=== PATIENT | female | born 2000 | race Two or more races ===

== ENCOUNTER 2025-01-10 18:02 | Emergency (ER) | payer MEDICAID, SELFPAY ==
[2025-01-10 18:03] VITALS: BMI 26.5
[2025-01-10 19:05] VITALS: BP 119/84; PULSE 77; RESP 18; TEMP 36.9; O2SAT 99
--- NOTE | 2025-01-10 19:17 | EDNOTE_ITS ---
ED Skin Abcess FB-RME/HPI General Chief complaint: Wound Recheck / Suture Removal Stated complaint: INCISION SITE PAIN S/P 3 YRS AGO Time Seen by Provider: 01/10/25 19:07 Arrival date/time: 01/10/25 18:02 24F with no significant PMH presents to ED with 2 months of intermittent C- section scar pain that was from 3 years ago. Normal intake/output. Patient denies drainage and fevers/chills. Patient is currently on her period. Pain is worse with movement. Limitations: no limitations Related Data Home Medications ?Medication ?Instructions ?Recorded ?Confirmed vit no.95-ferrous 1 tab PO QDAY 08/24/2108/17 fumarate 28 mg-folic acid 800 mcg tablet () albuterol sulfate 90 mcg/actuation 1 - 2 puff inhalati on PRN PRN 08/28/21 08/28/21 aerosol inhaler Shortness Of Breath Or Wheez ing Previous Rx's ?Medication ?Instructions ?Recorded hydrocodone 5 mg-acetaminophen 325 1 tab PO Q4H PRN pa in #20 tabs 08/30/21 mg tablet amoxicillin 875 mg-potassium 1 tab PO BID #10 tabs clavulanate 125 mg tablet dicyclomine 10 mg capsule 10 mg PO BID PRN pain #10 ca ps 09/10/22 ondansetron 4 mg disintegrating 4 mg PO Q8H PRN nausea and 09/10/22 tablet vomiting #15 tabs amoxicillin 875 mg-potassium 1 tab PO Q12H #14 tabs clavulanate 125 mg tablet ibuprofen 800 mg tablet 800 mg PO TID PRN pain #30 t abs 08/22/23 omeprazole 40 mg capsule,delayed 40 mg PO QDAY #30 cap s 09/27/23 release Allergies Allergy/AdvReac Type Severity Reaction Status Date / Time No Known Allergies Allergy Verified 01/10/25 18:06 Review of Systems Review of Systems Systems Reviewed: All systems reviewed, normal except as documented Constitutional Constitutional: Reports system reviewed and no additional complaints, except as documented, Denies fever(s) and Denies headache(s) ENT Ears, Nose, Mouth, and Throat: Denies disequilibrium and Denies headache(s) Cardiovascular Cardiovascular: Reports system reviewed and no additional complaints, except as documented, Denies chest pain and Denies dyspnea Respiratory Respiratory: Reports system reviewed and no additional complaints, except as documented, Denies cough and Denies dyspnea Gastrointestinal Gastrointestinal: Reports system reviewed and no additional complaints, except as documented, Denies abdominal pain, Denies nausea and Denies vomiting Integumentary/Breasts Skin/Breast: Reports as per HPI and Reports skin pain Neurologic Neurologic: Reports system reviewed and no additional complaints, except as documented, Denies confusion, Denies disequilibrium and Denies headache(s) Psychiatric Psychiatric: Denies confusion Past Medical History Past Medical History NEUROLOGIC: Negative Neurological Disorders CARDIAC: Negative Cardiac Disorders or Congestive Heart Failure RESPIRATORY: Positive Asthma (WITH INH); Negative Chronic Obstructive Pulmonary Disease (COPD) GASTROINTESTINAL: Positive Gastrointestinal Disorders and Gastroesophageal Reflux Disease; Negative Hepatitis or Colorectal Cancer GENITOURINARY: Positive Genitourinary Disorders (UTIS); Negative Renal Disease REPRODUCTIVE: Positive Previous Pregnancies (sab X1.); Negative Breast Cancer MUSCULOSKELETAL: Negative Musculoskeletal Disorders or Bone Cancer ENDOCRINE: Negative Endocrine Disorders, Diabetes Mellitus Type 1 or Diabetes Mellitus Type 2 HEMATOLOGIC: Negative Blood Disorders PSYCHO/SOCIAL: Positive Recreational Drug Use (THC), Anxiety, Attention Deficit Disorder and Attention Deficit Hyperactivity Disorder OTHER HISTORY: Negative Hospitalization, Autoimmune Disease, Down Syndrome, Developmental Delay, Shingles, Falls, Blood Transfusions, Blood Transfusion Reaction, Anesthesia Reactions, Organ Transplant, Chemotherapy, Radiation Therapy, Hyperbaric Therapy, MRSA, VRSA, Vancomycin-Resistant Enterococci, Human Immunodeficiency Virus (HIV), Chicken Pox, Measles, Mumps, Rubella (Emirati Measles), Pertussis, Clostridium Difficile, Cancer, Breast Cancer, Cervical Cancer, Colorectal Cancer, Lung Cancer or Ovarian Cancer Family History FAMILY HISTORY: Positive Family Psychiatric Problems (MOTHER- BIPOLAR/DRUGS), Family Cardiac Disorders (PAT GMA/ FATHER- HTN), Family Cancer (PAT GPA) and Family Surgery (FATHER- VALVE REPLACEMENT); Negative Family Respiratory Disorders, Family Gastrointestinal Problems or Family Anesthesia Reaction Surgical History SURGICAL: Negative Organ Transplant Social History SMOKING STATUS: Never smoker SUBSTANCE USE: marijuana ED Exam General Limitations: Present no limitations General appearance: Present alert and in no apparent distress Head Head exam: Present atraumatic Eye Eye exam: Present normal appearance, PERRL and EOMI ENT ENT exam: Present normal exam, normal oropharynx and mucous membranes moist Neck Neck exam: Present normal inspection, full ROM and trachea midline Chest Chest inspection: Present normal inspection and symmetric chest wall rise Respiratory Respiratory exam: Present normal lung sounds bilaterally Cardiovascular Cardiovascular exam: Present regular rate, normal rhythm and normal heart sounds Abdominal Exam Abdominal exam: Present soft, normal bowel sounds and scar () Extremities Exam Extremities exam: Present normal inspection and full ROM Back Exam Back exam: Present normal inspection and full ROM Neurological Exam Neurological exam: Present alert, oriented X3 and CN II-XII intact Psychiatric Psychiatric exam: Present normal affect and normal mood Skin Skin exam: Present warm, dry, intact and normal color Course Quality Measures none Orders Category Date Time Status Naproxen [Naprosyn] Med 01/10/25 19:08 Discontinued 250 mg PO X1 ONE Vital Signs Vital signs: Vital Signs Temperature 98.5 F 01/10/25 19:05 Pulse Rate 77 01/10/25 19:05 Respiratory Rate 18 01/10/25 19:05 Blood Pressure 119/84 01/10/25 19:05 Pulse Oximetry (%) 99 01/10/25 19:05 Oxygen Delivery Method Room Air 01/10/25 19:05 O2 at 99% on RA and WNLs Skin / Abscess / Foreign Body MDM Narrative MDM Narrative:: 24F with no significant PMH presents to ED with 2 months of intermittent C- section scar pain that was from 3 years ago. Normal intake/output. Patient denies drainage and fevers/chills. Patient is currently on her period. Pain is worse with movement. Physical exam with senior field engineer reveals well-healed scar. No redness, hypertrophy, or tenderness. Patient is afebrile, calm, and alert. Meds and drug and alcohol counsellor given. Patient data External records reviewed:: [facility] previous records Clinical information provided by:: patient Social determinants that could affect healthcare access:: none Patient has the following chronic illnesses:: none How is presenting disease/condition affected by chronic disease/condition?: no chronic disease Evaluation data The following diagnostics were reviewed and interpreted by me:: other (specify) (none) Lab and/or radiology exams considered but not ordered:: not ordered Interpretation Summary: n/a Medications / Prescriptions Medications or Prescriptions considered but not ordered:: ordered Medication administrations:: Medication Administration History Discontinued Medications Naproxen (Naproxen 250 Mg Tablet) 250 mg PO X1 ONE Stop: 01/10/25 19:09 Last Admin: 01/10/25 19:25 Dose: 250 mg Documented By: KF above Consultations Consultation(s) initiated? (list below): No Diagnosis Skin/Abscess Differential Diagnosis: abscess of skin or subcutaneous tissue, viral exanthem, dermatophytosis, urticaria, herpes zoster, allergic reaction to drug, cellulitis, eczema, insect bites, impetigo and contact dermatitis Most likely diagnosis given after review of the tests above:: maternal care for scar Admission Indicated Admission indicated?: not indicated Admission Request Was there a request for admission?: No Disposition Plan Disposition Plan: Discharge Discharge Attestation Discharge Attestation: The patient and all family members were given an opportunity to ask questions and understood the discharge instructions. Discharge instructions specifically effects, indications for sooner follow up or return to the emergency department, and the expected course of current diagnosis. Patient condition: Stable Discharge Plan Plan Patient Disposition: HOME (Self Care) Discharge Disposition comment: Stable Prescriptions/Referrals Prescriptions/Med Rec: No Action albuterol sulfate 90 mcg/actuation HFA aerosol inhaler 1 - 2 puff INHALATION PRN PRN (Reason: Shortness Of Breath Or Wheezing) Patient Comments: INHALE 1 PUFF BY MOUTH EVERY 4 TO 6 HOURS NEEDED hydrocodone-acetaminophen 5-325 mg tablet 1 tab PO Q4H MDD 5 PRN (Reason: pain) Qty: 20 0RF amoxicillin-pot clavulanate 875-125 mg tablet 1 tab PO BID Qty: 10 0RF PNV cmb#95-ferrous fumarate-FA [] 28 mg iron- 800 mcg tablet 1 tab PO QDAY ondansetron 4 mg tablet,disintegrating 4 mg PO Q8H PRN (Reason: nausea and vomiting) Qty: 15 0RF dicyclomine 10 mg capsule 10 mg PO BID PRN (Reason: pain) Qty: 10 0RF ibuprofen 800 mg tablet 800 mg PO TID PRN (Reason: pain) Qty: 30 0RF amoxicillin-pot clavulanate 875-125 mg tablet 1 tab PO Q12H Qty: 14 0RF omeprazole 40 mg capsule,delayed release(DR/EC) 40 mg PO QDAY Qty: 30 0RF Problem List Clinical Impression: Scar conditions and fibrosis of skin, Maternal care for unspecified type scar from previous delivery Patient/Caregiver Discharge Instructions Additional Instructions: Please follow-up with PCP/OBYGN within 24-48 hours and return immediately if symptoms worsen. NSAIDs tend to work better for this type of pain. Print Language: Lithuanian Stand Alone Forms: Patient Portal Info Letter PA/SYSTEMS INTEGRATION ADVISOR Supervising Physician PA/SYSTEMS INTEGRATION ADVISOR Supervising Physician: Dr. Ortiz
[2025-01-10] MEDS: NAPROXEN 250 MG TABLET PO (19:25)
== END 2025-01-10 19:30 | disposition home or self-care (01) ==
PROVIDERS: Emergency Provider Emergency Medicine
DX: L90.5 Scar conditions and fibrosis of skin (principal); Z98.891 History of uterine scar from previous surgery
CPT/HCPCS: 99282; A9270

== ENCOUNTER 2025-05-16 05:27 | Emergency (ER) | payer MEDICAID, SELFPAY ==
[2025-05-16 05:28] VITALS: BMI 25.7
[2025-05-16 05:51] VITALS: BP 110/70; PULSE 73; RESP 16; TEMP 37; O2SAT 98
--- NOTE | 2025-05-16 06:27 | PD.EDBACK ---
ED Back Injury Pain RME/HPI General Chief Complaint: Skin/Abscess/Foreign Body Stated Complaint: CYST ON BACK Time Seen by Provider: 05/16/25 06:10 Source: patient Arrival date/time: 05/16/25 05:27 24-year-old female with no known medical history presents to the emergency room with a chief complaint of lumbar back pain. Patient states she has a cyst on her back. Mode of arrival: ambulatory Limitations: no limitations Related Data Home Medications ?Medication ?Instructions ?Recorded ?Confirmed vit no.95-ferrous 1 tab PO QDAY 08/24/21 08/28/21 fumarate 28 mg-folic acid 800 mcg tablet () albuterol sulfate 90 mcg/actuation 1 - 2 puff inhalation PRN PRN 08/28/21 08/28/21 aerosol inhaler Shortness Of Breath Or Wheezing Previous Rx's ?Medication ?Instructions ?Recorded hydrocodone 5 mg-acetaminophen 325 1 tab PO Q4H PRN pain #20 tabs 08/30/21 mg tablet amoxicillin 875 mg-potassium 1 tab PO BID #10 tabs 09/01/21 clavulanate 125 mg tablet dicyclomine 10 mg capsule 10 mg PO BID PRN pain #10 caps 09/10/22 ondansetron 4 mg disintegrating 4 mg PO Q8H PRN nausea and 09/10/22 tablet vomiting #15 tabs amoxicillin 875 mg-potassium 1 tab PO Q12H #14 tabs 08/22/23 clavulanate 125 mg tablet ibuprofen 800 mg tablet 800 mg PO TID PRN pain #30 tabs 08/22/23 omeprazole 40 mg capsule,delayed 40 mg PO QDAY #30 caps 09/27/23 release Allergies Allergy/AdvReac Type Severity Reaction Status Date / Time No Known Allergies Allergy Verified 01/10/25 18:06 Review of Systems Review of Systems Systems Reviewed: All systems reviewed, normal except as documented Constitutional Constitutional: Reports system reviewed and no additional complaints, except as documented, Denies fatigue, Denies fever(s), Denies headache(s) and Denies weakness Eyes Eyes: Reports system reviewed and no additional complaints, except as documented, Denies blurry vision and Denies change in vision ENT Ears, Nose, Mouth, and Throat: Reports system reviewed and no additional complaints, except as documented, Denies otalgia, Denies headache(s), Denies nasal congestion, Denies throat swelling and Denies vertigo Cardiovascular Cardiovascular: Reports system reviewed and no additional complaints, except as documented, Denies chest pain, Denies dyspnea and Denies dyspnea on exertion Respiratory Respiratory: Reports system reviewed and no additional complaints, except as documented, Denies chest congestion, Denies cough, Denies dyspnea, Denies dyspnea on exertion and Denies wheezing Gastrointestinal Gastrointestinal: Reports system reviewed and no additional complaints, except as documented, Denies abdominal pain, Denies cramping, Denies nausea and Denies vomiting Genitourinary Genitourinary: Reports system reviewed and no additional complaints, except as documented Musculoskeletal Musculoskeletal: Reports system reviewed and no additional complaints, except as documented and Reports back pain Integumentary/Breasts Skin/Breast: Reports system reviewed and no additional complaints, except as documented and Denies wounds Neurologic Neurologic: Reports system reviewed and no additional complaints, except as documented, Denies confusion, Denies headache(s), Denies lack of coordination, Denies vertigo and Denies weakness Psychiatric Psychiatric: Reports system reviewed and no additional complaints, except as documented, Denies anxiety, Denies confusion, Denies depression, Denies paranoia, Denies suicidal ideation and Denies tactile hallucinations Endocrine Endocrine: Reports system reviewed and no additional complaints, except as documented and Denies fatigue Hematologic/Lymphatic Hematologic/Lymphatic: Reports system reviewed and no additional complaints, except as documented and Denies lymphadenopathy Allergic/Immunologic Allergic/Immunologic: Reports system reviewed and no additional complaints, except as documented, Denies throat swelling, Denies urticaria and Denies wheezing Past Medical History Past Medical History NEUROLOGIC: Negative Neurological Disorders CARDIAC: Negative Cardiac Disorders or Congestive Heart Failure RESPIRATORY: Positive Asthma (WITH INH); Negative Chronic Obstructive Pulmonary Disease (COPD) GASTROINTESTINAL: Positive Gastrointestinal Disorders and Gastroesophageal Reflux Disease; Negative Hepatitis or Colorectal Cancer GENITOURINARY: Positive Genitourinary Disorders (UTIS); Negative Renal Disease REPRODUCTIVE: Positive Previous Pregnancies (sab X1.); Negative Breast Cancer MUSCULOSKELETAL: Negative Musculoskeletal Disorders or Bone Cancer ENDOCRINE: Negative Endocrine Disorders, Diabetes Mellitus Type 1 or Diabetes Mellitus Type 2 HEMATOLOGIC: Negative Blood Disorders PSYCHO/SOCIAL: Positive Recreational Drug Use (THC), Anxiety, Attention Deficit Disorder and Attention Deficit Hyperactivity Disorder OTHER HISTORY: Negative Hospitalization, Autoimmune Disease, Down Syndrome, Developmental Delay, Shingles, Falls, Blood Transfusions, Blood Transfusion Reaction, Anesthesia Reactions, Organ Transplant, Chemotherapy, Radiation Therapy, Hyperbaric Therapy, MRSA, VRSA, Vancomycin-Resistant Enterococci, Human Immunodeficiency Virus (HIV), Chicken Pox, Measles, Mumps, Rubella (Irish Measles), Pertussis, Clostridium Difficile, Cancer, Breast Cancer, Cervical Cancer, Colorectal Cancer, Lung Cancer or Ovarian Cancer Family History FAMILY HISTORY: Positive Family Psychiatric Problems (MOTHER- BIPOLAR/DRUGS), Family Cardiac Disorders (PAT GMA/ FATHER- HTN), Family Cancer (PAT GPA) and Family Surgery (FATHER- VALVE REPLACEMENT); Negative Family Respiratory Disorders, Family Gastrointestinal Problems or Family Anesthesia Reaction Surgical History SURGICAL: Negative Organ Transplant Social History SMOKING STATUS: Never smoker SUBSTANCE USE: marijuana ED Exam General Limitations: Present no limitations General appearance: Present alert and in no apparent distress Head Head exam: Present atraumatic Eye Eye exam: Present normal appearance, PERRL and EOMI ENT ENT exam: Present normal exam, normal oropharynx and mucous membranes moist Neck Neck exam: Present normal inspection, full ROM and trachea midline Chest Chest inspection: Present normal inspection and symmetric chest wall rise Respiratory Respiratory exam: Present normal lung sounds bilaterally Cardiovascular Cardiovascular exam: Present regular rate, normal rhythm and normal heart sounds Abdominal Exam Abdominal exam: Present soft and normal bowel sounds Extremities Exam Extremities exam: Present normal inspection and full ROM Back Exam Back exam: Present normal inspection, full ROM and vertebral tenderness Back 1 view image:  1. Lumbar back pain with palpation Neurological Exam Neurological exam: Present alert, oriented X3 and CN II-XII intact Psychiatric Psychiatric exam: Present normal affect and normal mood Skin Skin exam: Present warm, dry, intact and normal color Course Quality Measures none Orders Category Date Time Status XR lumbar spine 2-3V Stat Exams 05/16/25 06:27 Ordered HCG Qualitative,Urine Stat Lab 05/16/25 06:42 Ordered Vital Signs Vital signs: Vital Signs Temperature 98.6 F 05/16/25 05:51 Pulse Rate 73 05/16/25 05:51 Respiratory Rate 16 05/16/25 05:51 Blood Pressure 110/70 05/16/25 05:51 Pulse Oximetry (%) 98 05/16/25 05:51 Oxygen Delivery Method Room Air 05/16/25 05:51 Back Pain / Injury MDM Narrative MDM Narrative:: 24-year-old female with no known medical history presents to the emergency room with a chief complaint of lumbar back pain. Patient states she has a cyst on her back. Patient is hemodynamically stable and in no apparent distress Physical examination shows tenderness and pain to the patient's lumbar back. Patient denies any saddle anesthesia any loss of bowel or bladder function. Patient does not have any numbness to the lower extremities. Patient is able to ambulate with no problems. Patient states she was told by her primary care provider last year that there is a cyst in her back. Patient eloped prior to final disposition. Patient data External records reviewed:: [facility] previous records Clinical information provided by:: patient Social determinants that could affect healthcare access:: none Patient has the following chronic illnesses:: No chronic illness How is presenting disease/condition affected by chronic disease/condition?: no chronic disease Evaluation data The following diagnostics were reviewed and interpreted by me:: lab results and radiology exam(s) Lab and/or radiology exams considered but not ordered:: Labs and radiology exams considered and ordered Interpretation Summary: Lumbar [id number] eloped prior to getting x-ray Medications / Prescriptions Medications or Prescriptions considered but not ordered:: No medication given Medication administrations:: No medication given Consultations Consultation(s) initiated? (list below): No Diagnosis Differential diagnosis back pain/injury: lumbar radiculopathy and strain of lumbar region Most likely diagnosis given after review of the tests above:: Strain of lumbar region Admission Indicated Admission indicated?: not indicated Admission Request Was there a request for admission?: No Disposition Plan Disposition Plan: Discharge Discharge Attestation Discharge Attestation: The patient and all family members were given an opportunity to ask questions and understood the discharge instructions. Discharge instructions specifically effects, indications for sooner follow up or return to the emergency department, and the expected course of current diagnosis. Patient condition: Stable Discharge Plan Plan Patient Disposition: Elopement Discharge Disposition comment: Stable Prescriptions/Referrals Prescriptions/Med Rec: No Action albuterol sulfate 90 mcg/actuation HFA aerosol inhaler 1 - 2 puff INHALATION PRN PRN (Reason: Shortness Of Breath Or Wheezing) Patient Comments: INHALE 1 PUFF BY MOUTH EVERY 4 TO 6 HOURS NEEDED hydrocodone-acetaminophen 5-325 mg tablet 1 tab PO Q4H MDD 5 PRN (Reason: pain) Qty: 20 0RF amoxicillin-pot clavulanate 875-125 mg tablet 1 tab PO BID Qty: 10 0RF PNV no.95-ferrous fumarate-FA [] 28 mg iron- 800 mcg tablet 1 tab PO QDAY ondansetron 4 mg tablet,disintegrating 4 mg PO Q8H PRN (Reason: nausea and vomiting) Qty: 15 0RF dicyclomine 10 mg capsule 10 mg PO BID PRN (Reason: pain) Qty: 10 0RF ibuprofen 800 mg tablet 800 mg PO TID PRN (Reason: pain) Qty: 30 0RF amoxicillin-pot clavulanate 875-125 mg tablet 1 tab PO Q12H Qty: 14 0RF omeprazole 40 mg capsule,delayed release(DR/EC) 40 mg PO QDAY Qty: 30 0RF Problem List Clinical Impression: Lumbar back sprain Patient/Caregiver Discharge Instructions Print Language: Kazakh
--- NOTE | 2025-05-16 06:43 | PC.NURSE ---
PT SEEN WALKING OUT OF FRONT ER DOORS AND LEAVING IN CAR.
== END 2025-05-16 09:39 | disposition left against medical advice (07) ==
LOC: SERX 07:12
PROVIDERS: Emergency Provider Family Medicine
DX: S33.5XXA Sprain of ligaments of lumbar spine, initial encounter (principal); X58.XXXA Exposure to other specified factors, initial encounter; Z53.29 Procedure and treatment not carried out because of patient's decision for other reasons
CPT/HCPCS: 81025; 99281